=== PATIENT | male | born 1990 | race Caucasian/White ===

== ENCOUNTER 2021-06-20 15:33 | Emergency (ER) | payer BC, OTHER ==
[2021-06-20 16:05] VITALS: RESP 18
[2021-06-20] MEDS ORDERED: LIDOCAINE 1% INJ 10MG/ML (20 ML MDV) SQ ONE (17:48)
[2021-06-20] MEDS ORDERED: BACITRACIN OINT 1 EACH PACKET TOPICAL ONE (17:49)
[2021-06-20] MEDS ORDERED: DIPH,PERTUS(ACELL)TETVAC-LF 0.5 ML VIAL IM ONE (17:50)
--- NOTE | 2021-06-20 18:08 | ED ---
General Adult HPI - General Chief complaint: Wound/Laceration Stated complaint: finger lac Time Seen by Provider: 06/20/21 17:15 Source: patient Mode of arrival: ambulatory Limitations: no limitations - History of Present Illness Initial comments: This 31-year-old male presents emergency Department with a laceration to his left hand ring finger. Patient states he was installing a furnace around 1:00 PM when his hand got scraped on a metal grate, pulling back the skin on the top of his finger. Patient states he does have full sensation in the finger, however he states it is stuck a little bit bent. Patient currently has his finger wrapped in gauze. Patient states he is unsure when his last tetanus shot was and he agrees to getting one here today. Patient states he has had sutures in his past because little kid at that time. Patient denies being on any blood thinners. Patient states he is able to wiggle his finger up and down, however h e is unable to bend it. Patient denies any chest pain, shortness of breath, abdominal pain, nausea, vomiting, headache, dizziness, lightheadedness, weakness, change in vision. - Related Data Previous Rx's Medication Instructions Recorded Cephalexin [Keflex] 500 mg PO Q6HR #40 cap 06/20/21 Allergies Allergy/AdvReac Type Severity Reaction Status Date / Time No Known Allergies Allergy Verified 06/20/21 18:12 Review of Systems ROS Statement: Those systems with pertinent positive or pertinent negative responses have been documented in the HPI. ROS Other: All systems not noted in ROS Statement are negative. Past Medical History Past Medical History: No Reported History History of Any Multi-Drug Resistant Organisms: None Reported Additional Past Surgical History / Comment(s): knee surgery 2010 Past Psychological History: No Psychological Hx Reported Smoking Status: Current every day smoker Past Alcohol Use History: Occasional Past Drug Use History: Marijuana General Exam Limitations: no limitations General appearance: alert, in no apparent distress Head exam: Present: atraumatic, normocephalic, normal inspection Eye exam: Present: normal appearance, PERRL, EOMI. Absent: scleral icterus, conjunctival injection, periorbital swelling ENT exam: Present: normal exam, mucous membranes moist Neck exam: Present: normal inspection. Absent: tenderness, meningismus, lymphadenopathy Respiratory exam: Present: normal lung sounds bilaterally. Absent: respiratory distress, wheezes, rales, rhonchi, stridor Cardiovascular Exam: Present: regular rate, normal rhythm, normal heart sounds. Absent: systolic murmur, diastolic murmur, rubs, gallop, clicks GI/Abdominal exam: Present: soft, normal bowel sounds. Absent: distended, tenderness, guarding, rebound, rigid Extremities exam: Present: full ROM (Patient able to flex finger between the metacarpal and proximal phalanx. DIP flexed, patient is unable to extend DIP on his own.), normal capillary refill, other (2.5 centimeter laceration to the dorsal surface of left hand ring finger. Ulnar and radial pulses are palpable. Good blood flow to the digits with cap refill less than 2 seconds). Absent: normal inspection (Patient with laceration to dorsal surface of left hand ring finger in between the DIP and MCP joint. DIP joint is flexed and patient is unable to extend finger. Patient with full sensation in the distal, middle and proximal phalanx. Patient unable to flex finger at MCP joint. ) Back exam: Present: normal inspection Neurological exam: Present: alert, oriented X3, CN II-XII intact Psychiatric exam: Present: normal affect, normal mood Skin exam: Present: warm, dry Course Vital Signs 06/20/21 15:59 Temperature 98.0 F Pulse Rate 95 Respiratory 18 Rate Blood Pressure 170/104 O2 Sat by Pulse 98 Oximetry Procedures - Laceration Laceration #1 Consent Obtained: verbal consent Indication: laceration Site: hand Description: flap, irregular Depth: simple, single layer Anesthetic Used: lidocaine 1% Anesthesia Technique: local infiltration, nerve block Amount (mls): 5 Pre-repair: wound explored, irrigated extensively, deep structures intact (I was able to visualize extensor tendon which was torn) Type of Sutures: nylon Size of Sutures: 5-0 Number of Sutures: 11 Patient Tolerated Procedure: well, no complications Additional Comments: Hemostasis obtained. She did have small avulsion on left hand middle finger, I did offer to put Gelfoam over this avulsion, however patient did refuse and stated he would just prefer a Band-Aid. - Orthopedic Splinting/Casting Injury #1 Side: left Upper Extremity Injury Location: finger Upper Extremity Immobilizer: finger (other) Medical Decision Making - Medical Decision Making This 31-year-old male presents emergency Department with left hand ring finger laceration. There is a 2.5 cm laceration on the volar surface of left hand ring finger. I was able to place a 11 5-0 sutures. Hemostasis was obtained. I did speak to who did request patient follow-up with him or Dr. Andrews tomorrow morning. Extensor tendon was visualized and likely torn. Patient did have small 0.5cm avulsion to left hand middle finger volar surface, I did offer patient Gelfoam, however he did refuse and stated he just wanted antibiotic oin tment and Band-Aid placed. Patient verbally agreed to call the office in the morning to schedule an appointment. I did inform patient that he likely did tear his extensor tendon and may need surgical repair. Keflex antibiotic was given. did request that patient's finger was placed into a splint with his DIP hyperextended. I was able to place froggy splint to his left hand ring finger with his DIP hyperextended. Strict return precautions were discussed with patient. Patient verbally agreed to plan. Patient sent home in stable condition. I did offer pain medication patient, however he stated he did not want to pay for it. Told him he could take Tylenol as directed for symptomatically. I did discuss this case with my attending, Dr. Caldwell. Disposition Clinical Impression: Laceration of left hand involving extensor tendon Disposition: HOME SELF-CARE Condition: Stable Additional Instructions: Please call orthopedic doctor tomorrow morning Dr. Juliana Joe. Please report to the emergency department with any new, worsening, or concerning symptoms. Take Keflex antibiotic as directed. Take Tylenol for symptomatic relief. Prescriptions: Cephalexin [Keflex] 500 mg PO Q6HR #40 cap Is patient prescribed a controlled substance at d/c from ED?: No Referrals: None,Stated [Primary Care Provider] - 1-2 days Juliana Joe DO [Doctor of Osteopathic Medicine] - 1-2 days Hanane Hayward DO [Doctor of Osteopathic Medicine] - 1-2 days Time of Disposition: 18:52
--- NOTE | 2021-06-20 18:41 | XR ---
EXAMINATION TYPE: XR hand limited LT DATE OF EXAM: 06/20/2021 CLINICAL HISTORY: Pain status post laceration TECHNIQUE: 2 views of the left hand are obtained. COMPARISON: None. FINDINGS: There is no acute fracture/dislocation evident in the left hand. The joint spaces in the l eft hand appear within normal limits. The overlying soft tissue appears unremarkable. No radiopaque foreign body. IMPRESSION: No acute osseous abnormality or radiopaque foreign body.
[2021-06-20 19:50] VITALS: BP 141/102; PULSE 93; TEMP 98.1
== END 2021-06-20 19:50 | disposition home or self-care (01) ==
LOC: EC 15:33
DX: S61.215A Laceration without foreign body of left ring finger without damage to nail, initial encounter (principal); F17.200 Nicotine dependence, unspecified, uncomplicated; F12.90 Cannabis use, unspecified, uncomplicated; W26.8XXA Contact with other sharp object(s), not elsewhere classified, initial encounter
CPT/HCPCS: 12001; 90471; 90715; 99283

== ENCOUNTER 2024-03-17 10:51 | Emergency (ER) | payer BC, OTHER ==
[2024-03-17 11:29] VITALS: RESP 18
--- NOTE | 2024-03-17 11:34 | ED ---
General Adult HPI - General Source: patient, RN notes reviewed Mode of arrival: ambulatory Limitations: no limitations <Sunshine Cantor - Last Filed: 03/17/24 11:33> - General Source: patient, RN notes reviewed Mode of arrival: ambulatory Limitations: no limitations <María Garner - Last Filed: 03/19/24 06:30> - General Chief complaint: Extremity Problem,Nontraumatic Stated complaint: R foot pain Time Seen by Provider: 03/17/24 11:25 - History of Present Illness Initial comments: Quick note: 33-year-old male presents to the emergency department for evaluation of right foot pain. He notes that has been going on for 2 days. He reports that no known injury. Able to ambulate without limitation. (Sunshine Cantor) This is a 33-year-old male who presents to the emergency department for right foot pain. States that it started about 2 days ago. Denies any injuries. Pain is worse on the bottom and outside of the foot. It tends to be worse in the morning. He is able to ambulate but states that he does have somewhat of a limp. Denies any history of similar problems in the past. Admits to wearing footwear that may be slightly too tight for him. Not taking anything for pain. (María Garner) - Related Data Previous Rx's Medication Instructions Recorded Cephalexin [Keflex] 500 mg PO Q6HR #40 cap 06/20/21 Allergies Allergy/AdvReac Type Severity Reaction Status Date / Time No Known Allergies Allergy Verified 03/17/24 11:28 Review of Systems ROS Other: All systems not noted in ROS Statement are negative. <Sunshine Cantor - Last Filed: 03/17/24 11:33> ROS Other: All systems not noted in ROS Statement are negative. <María Garner - Last Filed: 03/19/24 06:30> ROS Statement: Those systems with pertinent positive or pertinent negative responses have been documented in the HPI. Past Medical History Past Medical History: No Reported History History of Any Multi-Drug Resistant Organisms: None Reported Additional Past Surgical History / Comment(s): knee surgery 2010 Past Psychological History: No Psychological Hx Reported Smoking Status: Current every day smoker Past Alcohol Use History: Occasional Past Drug Use History: Marijuana <Sunshine Cantor - Last Filed: 03/17/24 11:33> General Exam Limitations: no limitations <Sunshine Cantor - Last Filed: 03/17/24 11:33> Limitations: no limitations General appearance: alert, in no apparent distress Head exam: Present: atraumatic, normocephalic, normal inspection Respiratory exam: Present: normal lung sounds bilaterally. Absent: respiratory distress, wheezes, rales, rhonchi, stridor Cardiovascular Exam: Present: regular rate, normal rhythm, normal heart sounds. Absent: systolic murmur, diastolic murmur, rubs, gallop, clicks Extremities exam: Present: other (No tenderness, swelling, erythema, or warmth to the right foot. Full range of motion. 2+ DP and PT pulses) Neurological exam: Present: alert, oriented X3, CN II-XII intact Psychiatric exam: Present: normal affect, normal mood Skin exam: Present: warm, dry, intact, normal color. Absent: rash <María Garner - Last Filed: 03/19/24 06:30> - General Exam Comments Initial Comments: Visual Physical Exam Vital signs reviewed General: Well-appearing, nontoxic, no acute distress. Head: Normocephalic, atraumatic Eyes: PERRLA, EOMI ENT: Airway patent Chest: Nonlabored breathing Skin: No visual rash, normal skin tone Neuro: Alert and oriented 3 Musculoskeletal: No gross abnormalities (Sunshine Cantor) Course Vital Signs 03/17/24 03/17/24 11:26 14:01 Temperature 97 F L 98.4 F Pulse Rate 98 86 Respiratory 18 18 Rate Blood Pressure 136/95 158/106 O2 Sat by Pulse 95 97 Oximetry Medical Decision Making <Sunshine Cantor - Last Filed: 03/17/24 11:33> - Radiology Data Radiology results: report reviewed, image reviewed <María Garner - Last Filed: 03/19/24 06:30> - Medical Decision Making Quick note preformed and electronically signed by Sunshine Cantor PA-C (Sunshine Cantor) This is a 33-year-old male who presents to the emergency department for right foot pain. Was pt. sent in by a medical professional or institution? @ -No Did you speak to anyone other than the patient for history? @ -No Did you review nursing and triage notes? @ -Yes, and I agree, it is accurate with regards to the patient's symptoms. Were old charts reviewed? @ -No Differential Diagnosis? @ -Differential Musculoskeletal Muscular strain, contusion, ligament sprain, fracture, arthritis, septic arthr itis, bursitis, cellulitis, muscle spasm, nerve compression, DVT, arterial occlusion, herpes zoster, electrolyte abnormality, tumor.... This is not meant to be in all inclusive list EKG interpreted by me (3pts min.)? @ -Not obtained X-rays interpreted by me (1pt min.)? @ -X-ray of the right foot obtained. My interpretation identifies no acute fr actures. CT interpreted by me (1pt min.)? @ -Not obtained U/S interpreted by me (1pt. min.)? @ -Not obtained What testing was considered but not performed? (CT, X-rays, U/S, labs)? Why? @ -None What meds were considered but not given? Why? @ -None Did you discuss the management of the patient with other professionals? @ -No Did you reconcile home meds? @ -No Was smoking cessation discussed for >3mins.? @ -No Was critical care preformed (if so, how long)? @ -No Were there social determinants of health that impacted care today? How? (Homelessness, low income, unemployed, alcoholism, drug addiction, transportation, low edu. Level, literacy, decrease access to med. care, group home, rehab)? @ -No Was there de-escalation of care discussed even if they declined? (Discuss DNR or withdrawal of care, Hospice)? @ -No What co-morbidities impacted this encounter? (DM, HTN, Smoking, COPD, CAD, Cancer, CVA, Hep., AIDS, mental health diagnosis, sleep apnea, morbid obesity)? @ -None Was patient admitted / discharged? @ -Discharged. X-ray of the right foot obtained revealing no acute process. Physical examination unremarkable. We discussed [id number] pain medication as needed. Patient advised that he does not like to take pills. Advised something like diclofenac gel to see if that would be of any benefit. Also advised wearing looser but supportive footwear. He can also follow-up with a combatant swimmer if needed as well as his PCP. Patient discharged home in stable condition. Case discussed with ED attending Dr. Goddard. Return precautions reviewed in depth, the patient is instructed to return to the emergency department with any new, worsening, or concerning symptoms. Patient verbalized understanding. Undiagnosed new problem with uncertain prognosis? @ -None Drug Therapy requiring intensive monitoring for toxicity (Heparin, Nitro, Insulin, Cardizem)? @ -None Were any procedures done? @ -None Diagnosis/symptom? @ -Right foot pain Acute, or Chronic, or Acute on Chronic? @ -Acute Uncomplicated (without systemic symptoms) or Complicated (systemic symptoms)? @ -Uncomplicated Side effects of treatment? @ -None Exacerbation, Progression, or Severe Exacerbation] @ -Not applicable Poses a threat to life or bodily function? @ -No (María Garner) Disposition <Sunshine Cantor - Last Filed: 03/17/24 11:33> Is patient prescribed a controlled substance at d/c from ED?: No Time of Disposition: 14:15 <María Garner - Last Filed: 03/19/24 06:30> Clinical Impression: Right foot pain Disposition: HOME SELF-CARE Instructions (If sedation given, give patient instructions): Arthralgia (ED), Metatarsalgia (DC) Additional Instructions: Return to the emergency department with any new, worsening, or concerning symptoms. You can try applying [id number] diclofenac gel, which is like ibuprofen but in topical form. You can also try wearing different footwear. Follow up with your primary care provider in 1-2 days. Referrals: [facility] [NON-STAFF] - 1-2 days [facility] [NON-STAFF] - 1-2 days None,Stated [Primary Care Provider] - 1-2 days Forms: Area PCPs
--- NOTE | 2024-03-17 11:52 | XR ---
EXAMINATION TYPE: XR foot complete RT DATE OF EXAM: 03/17/2024 11:48 AM COMPARISON: None. CLINICAL INDICATION: Male, 33 years old with history of foot pain., pain TECHNIQUE: XR foot complete RT views were obtained. FINDINGS: There is no acute fracture/dislocation evident. The joint spaces appear within normal limits. The o verlying soft tissue appears unremarkable. IMPRESSION: No acute fracture or dislocation. [facility], , 03/17/2024 11:50 AM
[2024-03-17 14:04] VITALS: BP 158/106; PULSE 86; TEMP 98.4
== END 2024-03-17 14:40 | disposition home or self-care (01) ==
LOC: EC 10:51
DX: M79.671 Pain in right foot (principal); F17.200 Nicotine dependence, unspecified, uncomplicated
CPT/HCPCS: 99283